=== PATIENT | male | born 1975 | race African-American/Black ===

== ENCOUNTER 2020-08-30 04:52 | Emergency (ER) | payer MEDICARE, MEDICAID ==
[~2020-08-30] VITALS: Ht 177.8 cm; Wt 68.0 kg
--- NOTE | 2020-08-30 05:03 | NUR ---
[id number] FROM THE STREET C/O SI WITH NO PLAN. PLACED IN BED 14 ON MONITOR AND PULSE OX. ER AT BEDSIDE FOR EVAL. AWAITING ORDERS.
[2020-08-30 05:12] LABS: BASOPHILS % (AUTO) 0.4 % (0.0-2.0); EOSINOPHILS % (AUTO) 0.4 % (0.0-6.0); HEMATOCRIT 40 % (39-51); HEMOGLOBIN 13.3 g/dL (13.5-17.5); LYMPHOCYTES # (AUTO) 1.2 K/uL (0.8-4.8); LYMPHOCYTES % (AUTO) 11.4 % (20.0-44.0); MEAN CORPUSCULAR HGB CONC 34 g/dl (31.0-36.0); MEAN CORPUSCULAR VOLUME 80 fL (80-96); MONOCYTES # (AUTO) 0.6 K/uL (0.1-1.30); MONOCYTES % (AUTO) 5.4 % (2.0-12.0); NEUTROPHILS # (AUTO) 8.8 K/uL (1.8-8.9); NEUTROPHILS % (AUTO) 82.4 % (43.0-81.0); PLATELET COUNT (AUTO) 337 K/uL (150-450); RED BLOOD CELL COUNT(AUTO) 4.97 MIL/uL (4.5-6.0); WHITE BLOOD COUNT (AUTO) 10.7 K/uL (4.3-11.0)
[2020-08-30 05:23] LABS: BILIRUBIN,URINE Negative (NEGATIVE); COLOR,URINE YELLOW (YELLOW); LEUKOCYTE ESTERASE ,URINE Negative (NEGATIVE); NITRITE, URINE Negative (NEGATIVE); PH,URINE 5.5 (5.0-8.0); PROTEIN,URINE 30 mg/dl (NEGATIVE); UGLUCOSE 500 MG/DL mg/dL (NEGATIVE); UROBILINOGEN,URINE 0.2 EU/dL (0.2)
[2020-08-30 05:26] LABS: ALANINE AMINOTRANSFERASE 18 U/L (12-78); ALBUMIN 4.2 g/dL (3.4-5.0); ALCOHOL, BLOOD < 3 mg/dL (0-0); ALKALINE PHOSPHATASE 71 U/L (46-116); ASPARTATE AMINOTRANSFERASE 12 U/L (15-37); BILIRUBIN,DIRECT 0.4 mg/dL (0.0-0.2); BILIRUBIN,TOTAL 1.9 mg/dL (0.2-1.0); CALCIUM, SERUM 9.6 mg/dL (8.5-10.1); CARBON DIOXIDE 26 mmol/L (21-32); CHLORIDE 99 mmol/L (98-107); CREATININE 0.9 mg/dL (0.6-1.3); GLUCOSE 192 mg/dL (74-106); POTASSIUM 3.1 mmol/L (3.5-5.1); SODIUM SERUM 137 mmol/L (136-145); TOTAL PROTEIN, SERUM 8.6 g/dL (6.4-8.2); UREA NITROGEN, BLOOD 9 mg/dL (7-18)
[2020-08-30 05:27] LABS: ACETAMINOPHEN < 0 ug/ml (10-30)
[2020-08-30 05:38] LABS: BACTERIA,URINE None seen /HPF (None Seen); RBC,URINE 0-2 /HPF (0-2); SQUAMOUS EPITHELIAL CELL,UR None Seen /HPF (None Seen); WBC,URINE 0-2 /HPF (0-3)
--- NOTE | 2020-08-30 05:42 | NUR ---
SPOKE TO PT, PT STATED HE IS SUICIDAL WITH PLAN TO JUMP IN FRONT OF TRAFFIC. ER MD AWARE. ALSO, PT REQUESTING TO BE SENT TO A [facility]TARY [facility] HOSPITAL.
--- NOTE | 2020-08-30 07:10 | NUR ---
FAXED FACE SHEET AND CLINICALS TO [facility]
--- NOTE | 2020-08-30 07:47 | NUR ---
THE PATIENT AWAKE. ALERT, VSS, DENIES ANY DISTRESS. WILL CONTINUE TO MONITOR THE PATIENT.
--- NOTE | 2020-08-30 11:00 | NUR ---
AIDEN PHYSICIAN GYNECOLOGIST AT BEDSIDE FOR EVAL.
--- NOTE | 2020-08-30 11:12 | NUR ---
[facility]
--- NOTE | 2020-08-30 11:15 | NUR ---
"Warehouse Attendant consult: cargo and ramp services manager requested for suicidal ideation, homelessness and substance use. Patient is a 45-year-old, male. SW met with patient at his bedside in the emergency department. Patient was alert and oriented x4. Patient presented tremulous and his eyes appeared red. Per chart, patient was brought in by ambulance from the street on 08/30/20 for complaints of suicidal ideation with a plan to run into traffic. Patient was requesting voluntary psychiatric hospitalization. Per EMR, patient has a history of seizure disorder and Schizophrenia. Patient is currently homeless and stated that he has been homeless for the last three months. Patient reported that he has a seizure disorder and needs medication. SW asked patient if he currently had a source of income and patient stated that he receives food stamps and [employer]. SW asked the patient about his history of substance use and patient denied history. Per toxicology report, patient is positive for amphetamine and cocaine. SW assessed patient's history of mental illness and patient denied history. Patient denied hallucinations or delusions. Patient denied suicidal and homicidal ideation and stated that he does not want to go to an inpatient psychiatric hospital for further treatment. SW discussed a safety plan with the patient. SW asked the patient if he was aware of where to go if he was experiencing suicidal ideation. Patient stated that he was aware that he should go to a hospital if was feeling suicidal. JUANA offered patient a resource for [facility]-[address] [facility] , [place] [address]; [phone]. Patient accepted the information and agreed to seek support if needed. SW offered the patient homeless resources and patient accepted the resources. Patient signed the homeless waiver and JUANA filed the waiver in the patient's chart. JUANA discussed discharge plans with the patient. Patient requested to be discharged to the street at this time. JUANA notified Dr. Dejesus. PLAN: Patient plans to return to the street once he is medically cleared. No further SS intervention at this time, however, SW will remain available as needed. RESOURCES: Year-round shelters: [facility] [place] [address] [place] [address] ; [facility] [place] [address] [place] [address]; [facility] [id number] [facility]. [facility] [address] SPA 4 | [facility] Provider: [facility] Address: [address], [address] # of Beds: 48 Population Served: [facility] Provider: First to Serve Address: [address] [facility], [address] # of Beds: 73 Population Served: [facility] 6 | [facility] Provider: [facility] Last Address: [address] [facility], [address] # of Beds: 63 Population Served: [facility] SPA 3 | [facility] Provider: [facility] [place] Address: [address] [facility], [address] # of Beds: 75 Population Served: [facility] 8 | [facility] Provider: [facility] [place] Address: [address] [place] [address] # of Beds: 80 Population Served: [facility] 1 | [facility] Provider: [facility] [place] Address: [address] [place] [address], [address] # of Beds: 85 Population Served: [facility] 2 | [facility] Provider: [place] [facility] Address: Confidential (please call for location) # of Beds: 52 Population Served: [facility] 4 | [facility] Provider: [facility] Address: [address] [facility], [address] # of Beds: 49 Population Served: [facility] Provider: [facility] To Serve Address: [address] [facility], [address] # of Beds: 27 Population Served: Levi Hygiene: [place] [facility] [facility]: [address] [place] ; [place] [facility] [address] [facility] ; [place] [address] . Food Resources: [place] [facility] at [facility]- [address] [place]; Meet Each Need with Dign[facility] ([facility]) [address] [place]; [facility] [address] [facility]; Our [facility] [address] [place]. Mental Health resources provided: [facility] [address] [place], [place] [address] ; [facility] [address] [facility] [address], [place], [place] [phone] ; [facility] [address] [facility] [place], [place] [phone] ; [facility] [address] [place], [place] [address] Healthcare Clinics: [facility] [address] [facility], [address] [place]. [place] ; [facility] [address] [facility] [address] [place] [address]; [facility] [address] [facility] [place] [address] 911) [phone] Counseling--Outpatient [facility] [address] [facility], [address] [place], [place] [address] (Specializes in in-depth psychotherapy for emotional distress: anxiety, depression, interpersonal conflicts, life transitions, childhood abuse) PSYCHIATRIC OUTPATIENT SERVICES [facility] Partial Hospitalization and Intensive Outpatient Program (Managed Care and [place] Only) [address] [place] [address] [facility] [phone] [facility] Partial Hospitalization and Outpatient Program [address] [place], [place] [id number] [facility] Partial Hospitalization and Outpatient Program [address] [place] [address] VAN [facility] [address] [facility] [place] [address] [facility] Partial Hospitalization and Outpatient Program [address] [facility] [place] [phone] Substance use resources provided included: [facility] Substance Abuse Self-Helpline (SAS) ; [facility] [address] [facility]. [place] [phone] ; [facility] [address] [facility] [address] ; [facility] [address] [facility] [id number] ; [facility] [address] [facility] [phone] ; [facility] [address] [facility] [phone] ; [facility]; [facility] [place]; [place] [facility]; Alcoholics Anonymous -[facility]"
--- NOTE | 2020-08-30 11:20 | NUR ---
The patient denies any distress. VSS.
--- NOTE | 2020-08-30 11:27 | NUR ---
CALLED MISSY FOR EVAL [phone]
--- NOTE | 2020-08-30 12:00 | NUR ---
PT ACCEPTED TO [facility] UNDER DR. OJEDA [phone] X UNIT TWO CALL FOR REPORT
--- NOTE | 2020-08-30 12:09 | NUR ---
CALLED TRANSPORT [facility] ETA 45 MINS.
--- NOTE | 2020-08-30 12:42 | NUR ---
PER NURSE KNOTT FROM THE [facility] KHANG JAMES REPORTTO BE GIVEN AFTER 1300.
--- NOTE | 2020-08-30 13:14 | NUR ---
REPORT GIVEN TO NURSE RUBEN FROM [facility] PO[facility].
--- NOTE | 2020-08-30 13:15 | NUR ---
THE PATIENT IS TRANSFERED TO [facility] IN STABLE CONDITION.
[2020-08-30 13:16] VITALS: BP 131/82
== END 2020-08-30 13:16 ==
LOC: ER 04:54
DX: R45.851 Suicidal ideations (principal); F20.9 Schizophrenia, unspecified; Z91.14 Patient's other noncompliance with medication regimen; G40.909 Epilepsy, unspecified, not intractable, without status epilepticus; Z20.822 Contact with and (suspected) exposure to COVID-19
CPT/HCPCS: 36415; 80048-TC; 80076-TC; 81001; 85025-TC; C9803; G0480